=== PATIENT | female | born 1995 | race Two or more races ===

== ENCOUNTER 2017-01-17 19:58 | Emergency (ER) | payer MEDICAID, OTHER ==
[~2017-01-17] VITALS: Ht 157.5 cm; Wt 83.5 kg
[~2017-01-17 19:58] MED LIST: DIFLUCAN100 MG ORAL; IBUPROFEN600 MG ORAL; NKM; NORCO 5-325 TA1 EACH ORAL; PROCTOSOL-HC1 APPLIC TOPIC
[2017-01-17 20:15] VITALS: BP 107/72
[2017-01-17] MEDS ORDERED: Ketorolac 60mg Inj IM ONE (20:45)
[2017-01-17] MEDS ORDERED: Methocarbamol 750mg tab ORAL ONE (20:45)
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
[2017-01-17] MEDS ORDERED: ROBAXIN-750750 MG PO (21:21)
[2017-01-17] MEDS ORDERED: IBUPROFEN600 MG ORAL (21:21)
[2017-01-17 21:25] VITALS: BP 107/72
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
== END 2017-01-17 21:25 | disposition home or self-care (01) ==
LOC: EMR 20:42
DX: M79.632 Pain in left forearm (principal); V43.52XA Car driver injured in collision with other type car in traffic accident, initial encounter; Y92.410 Unspecified street and highway as the place of occurrence of the external cause
CPT/HCPCS: 96372; 99283

== ENCOUNTER 2017-02-22 16:57 | Emergency (ER) | payer MEDICAID ==
[~2017-02-22] VITALS: Ht 160 cm; Wt 79.4 kg
[~2017-02-22 16:57] MED LIST changes: +ROBAXIN-750750 MG PO
[2017-02-22 17:11] VITALS: BP 105/73
[2017-02-22 17:14] VITALS: BP 122/78
[2017-02-22] MEDS ORDERED: Acetaminophen 500mg (ES) tab ORAL ONE (17:30)
[2017-02-22 18:02] LABS: APPEARANCE,URINE CLEAR; KETONES,URINE 3+ (NEGATIVE); LEUKOCYTE ESTERASE ,URINE NEGATIVE (NEGATIVE); NITRITE,URINE NEGATIVE (NEGATIVE); PH,URINE 8 (4.5-8.0); PROTEIN,URINE NEGATIVE (NEGATIVE); UROBILINOGEN,URINE 1 MG/DL (0.0-1.0)
[2017-02-22] MEDS ORDERED: IBUPROFEN600 MG ORAL (18:18)
[2017-02-22] MEDS ORDERED: PREDNISONE20 MG ORAL (18:18)
[2017-02-22] MEDS ORDERED: ZOFRAN4 M3 ORAL (18:19)
[2017-02-22] MEDS ORDERED: Ketorolac 30mg Inj IV ONE (18:30)
[2017-02-22 19:09] VITALS: BP 107/64
[2017-02-22 19:55] VITALS: BP 118/67
--- NOTE | 2017-02-22 21:12 | Emergency Room Report ---
History of Present Illness General Chief Complaint: Flu Like Symptoms Source: Patient Present Illness HPI The patient is a 21-year-old female presenting for multiple complaints including nausea, vomiting, sore throat, cough, and abdominal pain which all began yesterday. She denies any known sick contacts or recent travel. Pain is a 5/10 dull ache to the mid upper abdomen and does not radiate. She also has an 8/10 dull ache to the back of the throat which does not radiate. Worse with swallowing. She states that she had 3 episodes of vomiting this morning. She admits to subjective fevers. She denies any diarrhea. She denies any other symptoms including SOB, CP, rash, hemoptysis Allergies: Coded Allergies: No Known Allergies (Unverified , 11/17/14) Patient History Past Medical History: see triage record Pertinent Family History: none Last Menstrual Period: 02/08/17 Now: No Reviewed Nursing Documentation: PMH: Agreed, PSxH: Agreed Nursing Documentation-PMH Past Medical History: No Stated History Review of Systems All Other Systems: negative except mentioned in HPI Physical Exam Vital Signs Date Time Temp Pulse Resp B/P (MAP) Pulse Ox O2 Delivery O2 Flow Rate FiO2 02/22/17 17:01 100.0 121 18 105/73 97 Room Air Sp02 EP Interpretation: reviewed, normal General Appearance: no apparent distress, alert, GCS 15, non-toxic Head: normocephalic, atraumatic Eyes: bilateral eye normal inspection, bilateral eye PERRL ENT: hearing grossly normal, no angioedema, normal voice, pharyngeal erythema Neck: full range of motion, supple/symm/no masses Respiratory: chest non-tender, lungs clear, normal breath sounds, no wheezing, speaking full sentences Cardiovascular #1: no edema, no murmur, no rub, tachycardia Gastrointestinal: normal bowel sounds, soft, non-distended, no guarding, no rebound, tenderness - epigastric Genitourinary: normal inspection, no CVA tenderness Musculoskeletal: back normal, gait/station normal, normal range of motion, non- tender Neurologic: alert, oriented x3, responsive, motor strength/tone normal, sensory intact, speech normal Psychiatric: judgement/insight normal, memory normal, mood/affect normal, no suicidal/homicidal ideation Skin: normal color, no rash, warm/dry, well hydrated Lymphatic: no adenopathy Medical Decision Making PA Attestation Dr. Duff is my supervising physician. Patient management was discussed with my supervising physician Diagnostic Impression: Primary Impression: Pharyngitis, acute Qualified Codes: J02.9 - Acute pharyngitis, unspecified ER Course The patient is a 21-year-old female presenting for multiple symptoms including fever, sore throat, cough, nausea, vomiting, and abdominal pain Differential diagnoses considered but not limited to: Pharyngitis, bronchitis, Gastroenteritis, appendicitis, pancreatitis, among others PE: The patient is febrile and tachycardic. No apparent distress HEENT exam reveals pharyngeal erythema. Otherwise unremarkable. No lymphadenopathy Abdomen: TTp over epigastric region only. Normal appearance. Non distended. No CVA tenderness Skin warm and dry The patient is given IV fluids, Tylenol, Toradol and is feeling significantly better. Heart rate has decreased as well as temperature. Now within normal limits The patient will be discharged home and treated for likely viral illness. ER precautions given Last Vital Signs Date Time Temp Pulse Resp B/P (MAP) Pulse Ox O2 Delivery O2 Flow Rate FiO2 02/22/17 19:55 97.6 90 12 118/67 100 Room Air Status: improved Disposition: HOME, SELF-CARE Condition: Improved Scripts Ondansetron* (ZOFRAN*) 4 Mg Tablet 4 MG ORAL Q6H Y for Nausea & Vomiting, #30 TAB Prov: TERIRENAANJANIEY P.A. 02/22/17 Prednisone* (PREDNISONE*) 20 Mg Tablet 40 MG ORAL DAILY, #10 TAB Prov: TERZIAN,KITTY P.A. 02/22/17 Ibuprofen* (MOTRIN*) 600 Mg Tablet 600 MG ORAL Q8H Y for For Pain, #30 TAB 0 Refills Prov: TERZIAN,KITTY P.A. 02/22/17 Patient Instructions: Upper Respiratory Infection, Adult Additional Instructions: I discussed my findings with the patient. All questions and concerns have been answered. Treatment and medication compliance have been addressed. I advised the patient that they need to follow up with PMD in 3-5 days. Return to ED if pain remains or worsens, cough worsens or remains, you notice blood in your sputum, you notice wheezing, you experience a fever, or if needed for any reason. Patient verbalized understanding of discharge instructions. KITTY KWOK Feb 22, 2017 21:12
== END 2017-02-22 19:55 | disposition home or self-care (01) ==
LOC: EMR 17:15
DX: J02.9 Acute pharyngitis, unspecified (principal)
CPT/HCPCS: 81003; 81025; 96374; 96375; 99284; J1885

== ENCOUNTER 2017-10-26 11:41 | Emergency (ER) | payer SELFPAY ==
[~2017-10-26] VITALS: Ht 157.5 cm; Wt 79.4 kg
[~2017-10-26 11:41] MED LIST changes: +PREDNISONE20 MG ORAL; +ZOFRAN4 M3 ORAL
[2017-10-26] MEDS ORDERED: PRENATAL 19 TA1 EAC1 PO (12:05)
[2017-10-26] MEDS ORDERED: FOLIC ACID1 MG ORAL (12:05)
[2017-10-26 12:35] LABS: APPEARANCE,URINE SLIGHTLY CLOUDY; BILIRUBIN, URINE NEGATIVE (NEGATIVE); COLOR,URINE PALE YELLOW; GLUCOSE, URINE (UA) NEGATIVE (NEGATIVE); KETONES,URINE NEGATIVE (NEGATIVE); LEUKOCYTE ESTERASE ,URINE NEGATIVE (NEGATIVE); NITRITE,URINE NEGATIVE (NEGATIVE); PH,URINE 7 (4.5-8.0); PROTEIN,URINE NEGATIVE (NEGATIVE); UROBILINOGEN,URINE NORMAL MG/DL (0.0-1.0)
[2017-10-26 12:37] LABS: BASOPHILS % (AUTO) 1.6 % (0.0-2.0); EOSINOPHILS % (AUTO) 2.4 % (0.0-3.0); HEMATOCRIT 45.1 % (37.0-47.0); LYMPHOCYTES % (AUTO) 29.4 % (20.0-45.0); MEAN CORPUSCULAR VOLUME 87 FL (80-99); MONOCYTES % (AUTO) 5.8 % (1.0-10.0); NEUTROPHILS % (AUTO) 60.8 % (45.0-75.0); PLATELET COUNT 420 K/UL (150-450); RED BLOOD COUNT 5.17 M/UL (4.20-5.40); RED CELL DISTRIBUTION WIDTH 12.3 % (11.6-14.8); WHITE BLOOD COUNT 8.7 K/UL (4.8-10.8)
--- NOTE | 2017-10-26 13:28 | Emergency Room Report ---
History of Present Illness General Chief Complaint: Complications Source: Patient Present Illness HPI 21-year-old female presents to the emergency department complaining of vaginal bleeding and 6/10 in severity uterine cramping 2 days with spotting 2 weeks at 11 weeks along in her . Patient reports that 2 weeks ago when spotting began her FIRE ENGINE PUMP OPERATOR did an ultrasound and stated that heartbeat was fine and her was fine as well. Patient does not know what blood type she has. Patient reports moderate increase in pain over the course of last 2 days with new onset bright red blood work as opposed to previously was dark red blood. Patient also reports the passage of some clots. Patient states that her bleeding is intermittent she fills approximately 2 pads per day. . Orders are one normal absorbency pad per day. Patient is with a history of 1 prior miscarriage. Denies nausea, vomiting, fevers, chills, external vaginal lesions, abdominal tenderness. Patient reports urinary urgency and frequency with some intermittent dysuria. Patient denies itching or rashes she denies swollen tender lymph nodes or joint pain. Allergies: Coded Allergies: No Known Allergies (Unverified , 11/17/14) Patient History Past Medical History: see triage record Past Surgical History: none Pertinent Family History: none Last Menstrual Period: 08/11/2017 Now: Yes : 2 Para: 0 Reviewed Nursing Documentation: PMH: Agreed; PSxH: Agreed Nursing Documentation-PMH Past Medical History: No Stated History Review of Systems All Other Systems: negative except mentioned in HPI Physical Exam Vital Signs Date Time Temp Pulse Resp B/P (MAP) Pulse Ox O2 Delivery O2 Flow Rate FiO2 10/26/17 11:57 98.0 91 16 109/75 98 Room Air 98.1 Sp02 EP Interpretation: reviewed, normal General Appearance: no apparent distress, alert, GCS 15, non-toxic Head: normocephalic, atraumatic ENT: hearing grossly normal, normal voice Neck: full range of motion Respiratory: chest non-tender, lungs clear, normal breath sounds, speaking full sentences Cardiovascular #1: regular rate, rhythm Gastrointestinal: normal bowel sounds, non tender, soft, non-distended, no guarding Rectal: deferred Genitourinary: normal inspection, no CVA tenderness, adnexa normal, ext genitalia/vag normal, other - cervical Os is open, very scant bright red blood, majority is dark red/brown blood in the vaginal vault. Musculoskeletal: back normal, gait/station normal, normal range of motion, non- tender Neurologic: alert, oriented x3, responsive, motor strength/tone normal, sensory intact, normal gait, speech normal, grossly normal Psychiatric: judgement/insight normal Skin: normal color, no rash, warm/dry, well hydrated Lymphatic: no adenopathy Medical Decision Making PA Attestation Dr. Woodward is my supervising Physician whom patient management has been discussed with. Diagnostic Impression: Primary Impression: Missed with demise before 20 completed weeks of gestation Additional Impression: Retained products of conception after miscarriage ER Course 21-year-old female presents to the emergency department complaining of vaginal bleeding and 6/10 in severity uterine cramping 2 days with spotting 2 weeks at 11 weeks along in her . Patient reports that 2 weeks ago when spotting began her FIRE ENGINE PUMP OPERATOR did an ultrasound and stated that heartbeat was fine and her was fine as well. Patient does not know what blood type she has. Patient reports moderate increase in pain over the course of last 2 days with new onset bright red blood work as opposed to previously was dark red blood. Patient also reports the passage of some clots. Patient states that her bleeding is intermittent she fills approximately 2 pads per day. . Orders are one normal absorbency pad per day. Patient is with a history of 1 prior miscarriage. Denies nausea, vomiting, fevers, chills, external vaginal lesions, abdominal tenderness. Patient reports urinary urgency and frequency with some intermittent dysuria. Patient denies itching or rashes she denies swollen tender lymph nodes or joint pain. Ddx considered but are not limited to: Fibroid, ectopic , Fibroid, Spontaneous , Vital signs: are WNL, pt. is afebrile Pelvic Exam: Os is open H&PE are most consistent with: Spontaneous ORDERS: -CBC: unremarkable -Urine hcg- Positive -serum Hcg Quant: 586 - Blood/RH type and screen- ( A POSITIVE) -Pelvic US complete- intrauterine estimated at 8 weeks gestation. No heart motion, failed early - per radiology. ED INTERVENTIONS: -Tylenol PO --- Given this pt.s estimated and LMP ,having a quant of 586 is not congruent with estimated gestational age. Difficult to determine based on one hcg result however if all the information provided is correct this is most consistent with spontaneous miscarriage. --Pt is given very strict ED return precautions for worsening of her current symptoms, heavy continuous bleeding. Pt. is given a copy of the US radiology report as well as her hcg quant level to take with her. Pt. verbalizes her understanding and agreement with this proposed treatment plan. DISCHARGE: At this time pt. is stable for d/c to home. Will provide printed patient care instructions, and any necessary prescriptions. Care plan and follow up instructions have been discussed with the patient prior to discharge. The patient is given strict ED return precautions otherwise she is to follow-up with her FIRE ENGINE PUMP OPERATOR within 72 hours. Labs Test 10/26/17 12:24 White Blood Count 8.7 K/UL (4.8-10.8) Red Blood Count 5.17 M/UL (4.20-5.40) Hemoglobin 15.0 G/DL (12.0-16.0) Hematocrit 45.1 % (37.0-47.0) Mean Corpuscular Volume 87 FL (80-99) Mean Corpuscular Hemoglobin 29.0 PG (27.0-31.0) Mean Corpuscular Hemoglobin Concent 33.3 G/DL (32.0-36.0) Red Cell Distribution Width 12.3 % (11.6-14.8) Platelet Count 420 K/UL (150-450) Mean Platelet Volume 6.2 FL (6.5-10.1) Neutrophils (%) (Auto) 60.8 % (45.0-75.0) Lymphocytes (%) (Auto) 29.4 % (20.0-45.0) Monocytes (%) (Auto) 5.8 % (1.0-10.0) Eosinophils (%) (Auto) 2.4 % (0.0-3.0) Basophils (%) (Auto) 1.6 % (0.0-2.0) Urine Color Pale yellow Urine Appearance Slightly cloudy Urine pH 7 (4.5-8.0) Urine Specific [place] 1.010 (1.005-1.035) Urine Protein Negative (NEGATIVE) Urine Glucose (UA) Negative (NEGATIVE) Urine Ketones Negative (NEGATIVE) Urine Occult Blood 3+ (NEGATIVE) Urine Nitrite Negative (NEGATIVE) Urine Bilirubin Negative (NEGATIVE) Urine Urobilinogen Normal MG/DL (0.0-1.0) Urine Leukocyte Esterase Negative (NEGATIVE) Urine RBC 2-4 /HPF (0 - 2) Urine WBC 0-2 /HPF (0 - 2) Urine Squamous Epithelial Cells Many /LPF (NONE/OCC) Urine Bacteria Few /HPF (NONE) Urine HCG, Qualitative Positive (NEGATIVE) Human Chorionic Gonadotropin, Quant 586 mIU/mL (1-6) CT/MRI/US Diagnostic Results CT/MRI/US Diagnostic Results : Imaging Test Ordered: Pelvic US Impression "IUP measuring 8 weeks without heart motion. Findings are consistent with failed early . Question of left ovarian mass though bowel gas shadowing limits assessment recommended six-week follow-up."Per official radiology report- Please see report for specific details. Last Vital Signs Date Time Temp Pulse Resp B/P (MAP) Pulse Ox O2 Delivery O2 Flow Rate FiO2 10/26/17 11:57 98.0 91 16 109/75 98 Room Air 98.1 Disposition: HOME, SELF-CARE Condition: Stable Physician Consult: Dr. Medel OBGYN Scripts Acetaminophen* (TYLENOL EXTRA STRENGTH*) 500 Mg Tablet 500 MG ORAL Q6H PRN for For Pain, #20 TAB 0 Refills Prov: Sondra Gasca 10/26/17 Metronidazole* (FLAGYL*) 500 Mg Tablet 500 MG ORAL BID, #14 TAB 0 Refills Prov: Sondra Gasca 10/26/17 Referrals: WILLA JACOBSON,REFERRING (PCP) Patient Instructions: Incomplete Miscarriage, Miscarriage, [id number] Additional Instructions: Take medications as directed. Follow up with a OBGYN within 3 days, even if your symptoms have resolved. Return sooner to ED if new symptoms occur, or current symptoms become worse. - Please note that this Emergency Department Report was dictated using [employer] house operator technology software, occasionally this can lead to erroneous entry secondary to interpretation by the dictation equipment. Sondra Gasca October 26, 2017 13:28
--- NOTE | 2017-10-26 14:49 | Diagnostic Imaging Report ---
EXAM: US First Trimester, Transabdominal US , Transvaginal CLINICAL HISTORY: ABD PAIN TECHNIQUE: Real-time transabdominal and transvaginal obstetrical ultrasound of the maternal pelvis and a first trimester with image documentation. Transvaginal imaging was used for better evaluation of the fetus and adnexa. COMPARISON: No relevant prior studies available. FINDINGS: Gestation: Intrauterine measuring 8 weeks 0 days. No heart motion is observed. Findings are consistent with failed early Placenta/amniotic fluid: Cannot be adequately evaluated due to the early gestational age. Ovaries: Left ovary is not well assessed due to shadowing from bowel gas. Question of ovarian enlargement from a mass measuring up to 7.8 cm. A follow-up in 6 weeks is recommended. Free fluid: No free fluid. IMPRESSION: IUP measuring 8 weeks without heart motion. Findings are consistent with failed early . Question of a left ovarian mass, though bowel gas shadowing limits assessment. Recommend six-week sonographic follow-up.
[2017-10-26] MEDS ORDERED: METRONIDAZOLE500 MG ORAL (14:52)
[2017-10-26] MEDS ORDERED: TYLENOL EXTRA500 MG ORAL (14:55)
[2017-10-26 15:08] VITALS: BP 109/75
== END 2017-10-26 15:08 | disposition home or self-care (01) ==
LOC: EMR 12:00
DX: O02.1 Missed abortion (principal)
CPT/HCPCS: 36415; 76805; 81003; 81025; 84702; 85025; 86900; 86901; 99284

== ENCOUNTER 2018-04-02 16:44 | Emergency (ER) | payer MEDICAID ==
[~2018-04-02] VITALS: Ht 157.5 cm; Wt 83.5 kg
[~2018-04-02 16:44] MED LIST changes: +FOLIC ACID1 MG ORAL; +METRONIDAZOLE500 MG ORAL; +PRENATAL 19 TA1 EAC1 PO; +TYLENOL EXTRA500 MG ORAL
[2018-04-02 16:56] VITALS: BP 114/77
--- NOTE | 2018-04-02 18:37 | Emergency Room Report ---
History of Present Illness General Chief Complaint: Allergic Reaction Source: Patient Present Illness HPI This patient is at 21 weeks. The patient has had a normal . She states that today she had a smoker's peanut butter and jelly sandwich and afterward developed hives on her legs and arms. She denies shortness of breath or difficulty breathing. She denies tongue or throat swelling or symptoms. She states that she's never had a previous peanut allergy or other allergy. She denies recent illness. She has no other complaints. Allergies: Coded Allergies: No Known Allergies (Unverified , 11/17/14) Patient History Past Surgical History: none Social History: Denies: smoking, alcohol use, drug use Now: Yes - 21 weeks Reviewed Nursing Documentation: PMH: Agreed; PSxH: Agreed Nursing Documentation-PMH Past Medical History: No Stated History Review of Systems All Other Systems: negative except mentioned in HPI Physical Exam Vital Signs Date Time Temp Pulse Resp B/P (MAP) Pulse Ox O2 Delivery O2 Flow Rate FiO2 04/02/18 16:46 98.3 93 18 113/74 97 Room Air 98.2 Sp02 EP Interpretation: reviewed, normal General Appearance: no apparent distress, alert, GCS 15, non-toxic Head: normocephalic, atraumatic Eyes: bilateral eye normal inspection, bilateral eye PERRL ENT: hearing grossly normal, normal pharynx, no angioedema, normal voice Neck: full range of motion, supple/symm/no masses Respiratory: chest non-tender, lungs clear, normal breath sounds, no respiratory distress, no retraction, no accessory muscle use, speaking full sentences Cardiovascular #1: regular rate, rhythm, no edema Gastrointestinal: normal bowel sounds, non tender, soft, non-distended, no guarding, no rebound, other - Gravid Rectal: deferred Musculoskeletal: back normal, gait/station normal, normal range of motion, non- tender Neurologic: alert, oriented x3, responsive, motor strength/tone normal, sensory intact, speech normal Psychiatric: judgement/insight normal, memory normal, mood/affect normal, no suicidal/homicidal ideation Skin: warm/dry, well hydrated, other - Scattered hives on legs and arms Medical Decision Making Diagnostic Impression: Primary Impression: Allergic reaction Additional Impression: Hives ER Course This patient presents with a localized allergic reaction. There is no evidence of anaphylaxis. There are no respiratory symptoms. The patient was given Benadryl here in the emergency department. She has hives on her skin. I'm unsure if this is a new development of a peanut allergy or other allergy. Regardless, the patient was educated to avoid peanuts at this time. She was observed here in the emergency department and had no escalation of her symptoms. At this time, I feel this patient is stable for discharge home as she has only a localized reaction. Last Vital Signs Date Time Temp Pulse Resp B/P (MAP) Pulse Ox O2 Delivery O2 Flow Rate FiO2 04/02/18 16:56 98.2 81 23 114/77 100 Room Air 98.2 Status: improved Disposition: HOME, SELF-CARE Condition: Improved Referrals: [facility],REFERRING (PCP) Patient Instructions: Food Allergy Tami Woodward DO Apr 02, 2018 18:37
[2018-04-02] MEDS ORDERED: BENADRYL25 MG ORAL (18:38)
[2018-04-02 18:45] VITALS: BP 107/66
== END 2018-04-02 18:45 | disposition home or self-care (01) ==
LOC: EMR 17:40
DX: T78.40XA Allergy, unspecified, initial encounter (principal); X58.XXXA Exposure to other specified factors, initial encounter; L50.0 Allergic urticaria
CPT/HCPCS: 99282

== ENCOUNTER 2019-07-15 22:18 | Emergency (ER) | payer MEDICAID ==
[~2019-07-15] VITALS: Ht 157.5 cm; Wt 83.9 kg
[~2019-07-15 22:18] MED LIST changes: +BENADRYL25 MG ORAL
--- NOTE | 2019-07-15 22:26 | NUR ---
ED Nurse Note: PT WALKED IN TO ED C/O ROSE AND DIZZINESS [id number]. PT STATES FEELING WEAK. PT DENIES NVD, CP, OR SOB. PT VSS, NAD. ERMD AT BEDSIDE. WILL CONTINUE TO MONITOR PATIENT.
--- NOTE | 2019-07-15 22:33 | NUR ---
ED Nurse Note: urine collected and sent to lab
--- NOTE | 2019-07-15 22:42 | NUR ---
ED Nurse Note: pt went for ct via wheelchair accompanied by radio mechanic apprentice in stable condition
[2019-07-15 22:44] VITALS: BP 133/78
--- NOTE | 2019-07-15 22:47 | NUR ---
ED Nurse Note: PATIENT BACK FROM CT ACCOMPANIED BY DEL ALEX.
[2019-07-15] MEDS ORDERED: TRAMADOL HCL50 MG ORAL (22:52)
--- NOTE | 2019-07-15 22:53 | Emergency Room Report ---
History of Present Illness General Chief Complaint: Headache Source: Patient Present Illness HPI This is a 23-year-old female with no past medical history. She presents with chief complaint of headache. She said is been ongoing for about 2 weeks. Usually at night around 4 5 AM. She wakes up with a throbbing headache. She said is diffuse in nature. 8 out of 10. No focal deficit. [place] nauseous but no vomiting. When she takes some Motrin did help. Denies any other complaint. No pain right now. No fever chills. No head injury. Does have headaches in the past but never this severe. Allergies: Coded Allergies: No Known Allergies (Unverified , 11/17/14) Patient History Past Medical History: see triage record, old chart reviewed Past Surgical History: none Pertinent Family History: none Social History: Denies: smoking Last Menstrual Period: 05/2019 Now: No - unk Immunizations: other Reviewed Nursing Documentation: PMH: Agreed; PSxH: Agreed Nursing Documentation-PMH Past Medical History: No Stated History Review of Systems Eye: Denies: eye pain, blurred vision ENT: Denies: ear pain, nose congestion, throat swelling Respiratory: Denies: cough, shortness of breath Cardiovascular: Denies: chest pain, palpitations Gastrointestinal: Denies: abdominal pain, diarrhea, nausea, vomiting Musculoskeletal: Denies: back pain, joint pain Skin: Denies: rash Neurological: Reports: headache; Denies: numbness Endocrine: Denies: increased thirst, increased urine Hematologic/Lymphatic: Denies: easy bruising All Other Systems: negative except mentioned in HPI Physical Exam Vital Signs Date Time Temp Pulse Resp B/P (MAP) Pulse Ox O2 Delivery O2 Flow Rate FiO2 07/15/19 22:22 97.9 100 16 124/77 (93) 97 Room Air Vitals normal Sp02 EP Interpretation: reviewed, normal General Appearance: well appearing, no apparent distress, alert Head: normocephalic, atraumatic Eyes: bilateral eye PERRL, bilateral eye EOMI ENT: hearing grossly normal, normal pharynx Neck: full range of motion, supple, no meningismus Respiratory: chest non-tender, lungs clear, normal breath sounds Cardiovascular #1: regular rate, rhythm, no murmur Gastrointestinal: normal bowel sounds, non tender, no mass, no organomegaly, no bruit, non-distended Musculoskeletal: back normal, normal range of motion, gait/station normal Psychiatric: mood/affect normal Medical Decision Making Diagnostic Impression: Primary Impression: Headache Qualified Codes: R51 - Headache ER Course Patient presents with headache. No evidence of TIA or CVA. No bleed or neoplastic process. Will discharge home. CT/MRI/US Diagnostic Results CT/MRI/US Diagnostic Results : Imaging Test Ordered: CT head Impression Negative per radiologist Last Vital Signs Date Time Temp Pulse Resp B/P (MAP) Pulse Ox O2 Delivery O2 Flow Rate FiO2 07/15/19 22:44 98.1 81 16 133/78 97 Room Air Status: improved Disposition: HOME, SELF-CARE Condition: Stable Scripts Tramadol Hcl* (ULTRAM*) 50 Mg Tablet 50 MG ORAL TID PRN for For Pain, #20 TAB 0 Refills Prov: Sergio Collier MD 07/15/19 Patient Instructions: General Headache Without Cause Additional Instructions: Follow-up your doctor in 7 days. You may need referral to see a neurologist if headache is persistent. Return if worse. Sergio Collier MD Jul 15, 2019 22:52
[2019-07-15 22:55] VITALS: BP 133/78
--- NOTE | 2019-07-15 22:55 | NUR ---
ER DISCHARGE NOTE: Patient is cleared to be discharged per ERMD, pt is aox4, on room air, with stable vital signs. pt was given dc and prescription instructions, pt was able to verbalize understanding, pt id band removed without complications. pt is able to ambulate with steady gait. pt took all belongings.
--- NOTE | 2019-07-15 22:57 | Diagnostic Imaging Report ---
Indications: Throbbing headache and dizziness for 2 weeks Technique: Spiral acquisitions obtained through the brain. Angled axial and coronal 5 x 5 mm slices were reconstructed. Total dose length product 1274 mGycm. CTDI vol(s) 60 mGy. Dose reduction achieved using automated exposure control Comparison: None. Findings: No acute intracranial hemorrhage or edema. No mass effect nor midline shift. Normal olivia-white differentiation. Normal size ventricles and extra-axial CSF spaces. Visualized orbits and sinuses are unremarkable. The mastoids are clear. The calvarium is intact. Impression: Negative This agrees with the preliminary interpretation provided overnight by [facility]. The CT scanner at [facility] is accredited by the [employer] [place] [employer] and the scans are performed using protocols designed to limit radiation exposure to as low as reasonably achievable to attain images of sufficient resolution adequate for diagnostic evaluation.
== END 2019-07-15 22:55 | disposition home or self-care (01) ==
LOC: EMR 22:40
DX: R51 Headache (principal)
CPT/HCPCS: 70450; Z7502; 99284